=== PATIENT | female | born 1975 | race Caucasian/White ===

== ENCOUNTER 2021-04-22 16:42 | Emergency (ER) | payer OTHER, SELFPAY ==
[2021-04-22 16:56] VITALS: BP 135/96; PULSE 87; RESP 18; TEMP 37; O2SAT 100
--- NOTE | 2021-04-22 18:03 | ED.URI ---
HPI - URI/Sore Throat General Chief Complaint: Upper Respiratory Infection Stated Complaint: Headache,Cough,Congestion,Runny Nose Time Seen by Provider: 04/22/21 17:35 Source: patient and RN notes reviewed Mode of arrival: ambulatory Limitations: no limitations History of Present Illness HPI Narrative: Patient presents today complaint of a 1 week history of nasal congestion, cough, rhinorrhea, sore throat, ear pain. Cough is productive. States sore throat is worse in the morning 7 improves throughout the day. Patient woke up this morning with crustiness and redness in her right eye. She did get some relief with [id number]-gojuoml eyedrops. She has tried Mucinex, Sudafed, Zyrtec, Benadryl, and ibuprofen with little relief. Denies shortness of breath, fever. States symptoms improved a few days ago, but then worsened again this morning. MD elicited complaint: cough, sore throat and nasal congestion Related Data Home Medications Medication Instructions Recorded Confirmed biotin 5,000 mcg disintegrating 15,000 mcg PO DAILY tablet 08/28/19 04/22/21 tablet cetirizine 10 mg tablet 10 mg PO DAILY 08/28/19 04/22/21 levonorgestrel 20 mcg/24 hours (7 1 device I-UTERINE ONCE 01/17/20 04/22/21 yrs) 52 mg intrauterine device Allergies Allergy/AdvReac Type Severity Reaction Status Date / Time No Known Allergies Allergy Verified 04/22/21 17:05 Review of Systems Review of Systems: CONSTITUTIONAL: Denies body aches, fever, chills, or sweats. EYES: Denies visual changes, redness, or discharge. ENT: + Congestion, rhinorrhea, sore throat, bilateral ear pain CARDIOVASCULAR: Denies chest pain, palpitations, or edema. RESPIRATORY: Denies dyspnea.+ Cough GASTROINTESTINAL: Denies abdominal pain, nausea, vomiting, or diarrhea. GENITOURINARY: Denies dysuria or hematuria. SKIN: Denies rash, itching, or wounds. MUSCULOSKELETAL: Denies back pain, joint pain, or myalgia. NEUROLOGIC: Denies headache, numbness, tingling, or weakness. PSYCH: Denies depression or anxiety. PMFSH Past Medical History Medical History Anemia Encounter for colonoscopy following colon polyp removal Encounter for intrauterine device placement Fatigue Muscle cramps Normal vaginal delivery Obesity Ovarian cyst Patella fracture Vitamin D deficiency Surgical History Surgical History History of removal of ovarian cyst History of right knee surgery [place] teeth removed Family History Family History Father Hypertension Sibling Patient's sister is in good health Patient's brother is in good health Mother Family history of anemia Social History Social History Smoking status: Never smoker Second hand tobacco smoke exposure: No Alcohol intake: current Alcohol use details: 2-3 per month. Substance use: never Substance use type: does not use Gender identity (if verbalized by the patient): Female Spiritual care concerns: No Agree to blood products: Yes Comments At time of signature, I have reviewed and agree with nursing past medical, surgical, social and family history unless otherwise noted. Please see nursing chart for further information. There is no relevant family history pertinent to the presenting complaint Exam Narrative: GENERAL: Well-appearing, well-nourished, and in no acute distress. HEAD: Normocephalic, atraumatic. EYES: EOMI. PERRL. Left eye normal. Right eye: mildly injected conjunctiva. No active drainage. Lashes normal bilaterally ENT: Mucous membranes pink and moist. Nares congested. Turbinates erythematous with purulent discharge. TMs normal bilaterally. Throat normal. Uvula midline. NECK: Normal AROM. Supple. No lymphadenopathy. CHEST: No respiratory distress. Son
== END 2021-04-22 18:14 | disposition home or self-care (01) ==
PROVIDERS: Emergency Provider Nurse Practitioner
DX: J01.90 Acute sinusitis, unspecified (principal); H10.31 Unspecified acute conjunctivitis, right eye; D64.9 Anemia, unspecified; E66.9 Obesity, unspecified; Z68.36 Body mass index [BMI] 36.0-36.9, adult
CPT/HCPCS: 87081; 87880; 99213; G0463

== ENCOUNTER → 2021-07-17 03:16 | Outpatient (CLI) | payer OTHER, SELFPAY ==
[2021-07-18 22:39] LABS: SARS-CoV-2 RNA PCR Positive
== END ==
PROVIDERS: Visit Provider Internal Medicine Gastroenterology
DX: U07.1 COVID-19 (principal)
CPT/HCPCS: C9803; U0003; U0005

== ENCOUNTER 2022-06-29 13:13 | Outpatient (CLI) | payer OTHER, SELFPAY ==
[2022-06-29 15:07] LABS: Influenza A QL RT-PCR Negative (Negative); Influenza B QL RT-PCR Negative (Negative); RSV RNA, RT-PCR Negative (Negative); SARS-CoV-2 RNA PCR Positive
== END 2022-06-29 13:14 | disposition home or self-care (01) ==
LOC: ANHLAB 13:15
PROVIDERS: Visit Provider Physician Assistant
DX: U07.1 COVID-19 (principal)
CPT/HCPCS: 87637

== ENCOUNTER 2022-12-02 15:03 | Outpatient (CLI) | payer OTHER, SELFPAY ==
--- NOTE | ~2022-12-02 | MM_ITS ---
EXAMINATION: MM screening [facility] BI w falguni HISTORY: Screening mammogram TECHNIQUE: Craniocaudal and mediolateral oblique 3-D tomosynthesis images were obtained and synthetic 2-D images were generated. CAD analysis was submitted and interpreted. COMPARISON: 04/13/2019, 11/20/2015, 01/17/2015, 08/01/2014, 07/22/2014 BREAST PARENCHYMAL COMPOSITION: There are scattered areas of fibroglandular density. FINDINGS: No suspicious mass, calcification, or architectural distortion are identified in either [place] ast to suggest malignancy. There has been no suspicious interval change. IMPRESSION: 1. No mammographic evidence of malignancy. 2. Recommend routine screening mammography in one year. BI-RADS Category 1: Negative Reviewed, dictated and finalized at location A.
== END 2022-12-02 15:04 | disposition home or self-care (01) ==
PROVIDERS: PCP Family Medicine; Visit Provider Nurse Practitioner Obstetrics & Gynecology
DX: Z12.31 Encounter for screening mammogram for malignant neoplasm of breast (principal)
CPT/HCPCS: 77063; 77067

== ENCOUNTER 2023-01-17 01:31 | Day surgery (SDC) | payer OTHER, SELFPAY ==
[2023-01-05 13:04] VITALS: BMI 36.6
[2023-01-17 06:18] VITALS: BP 132/90; PULSE 78; RESP 18; TEMP 36.2; O2SAT 99; BMI 38.2
[2023-01-17] MEDS: LACTATED RINGERS 1,000 ML 150 ML IV CONT (06:31)
--- NOTE | 2023-01-17 07:20 | WPDANESEPPF ---
Anes - Initial Pre Proc Eval Procedure: Operation Date: 01/17/23 07:30 Proposed Procedures p Colonoscopy - Paulino Luciano MD Date/Time: 01/17/23 07:20 Surgeon: Paulino Luciano MD Pre Op Diagnosis: hx colon polyps Patient Data Age: 47 Gender: F Height: 1.65 m Weight: 104.2 kg Last Vital Signs Temp 97.2 F L 01/17/23 06:18 Pulse 78 01/17/23 06:18 Resp 18 01/17/23 06:18 BP 132/90 01/17/23 06:18 Pulse Ox 99 01/17/23 06:18 O2 Del Method Room Air 01/17/23 06:18 Allergies Allergy/AdvReac Type Severity Reaction Status Date / Time No Known Allergies Allergy Verified 01/17/23 06:17 Home Medications Medication Instructions Recorded Confirmed Type cetirizine 10 mg tablet (All Day 10 mg PO DAILY 08/28/19 01/17/23 History Allergy (cetirizine)) levonorgestrel 21 mcg/24 hours (8 1 device intrauterine ONCE 01/17/20 01/17/23 History yrs) 52 mg intrauterine device (Mirena) cholecalciferol (vitamin D3) 25 25 mcg PO DAILY 07/15/22 01/17/23 History mcg (1,000 unit) capsule mecobalamin (vitamin B12) 1,000 1,000 mcg PO DAILY 07/15/22 01/17/23 History mcg chewable tablet inulin-sorbitol 2 gram chewable 2 tablet PO DAILY 01/05/23 01/17/23 History tablet (Fiber Supplement (inulin)) omega-3s 300 on-gdm-bcm-other 1 cap PO DAILY 01/05/23 01/17/23 History [id number] oil 1,000 mg capsule ([place]-3 Fish Oil) Patient hx anesthesia problems: none Family hx anesthesia problems: none Results Review: All pre-operative results and documents have been reviewed as part of the pre-operative evaluation. [facility] Past Medical History Medical History Anemia Encounter for colonoscopy following colon polyp removal Encounter for intrauterine device placement Fatigue Gastroesophageal reflux disease Muscle cramps Normal vaginal delivery Obesity Ovarian cyst Patella fracture Vitamin D deficiency Surgical History Surgical History History of removal of ovarian cyst History of right knee surgery [place] teeth removed Family History Family History Father Hypertension Sibling Patient's sister is in good health Patient's brother is in good health Mother Family history of anemia Social History Social History Smoking status: Never smoker Second hand tobacco smoke exposure: No Alcohol intake: current Drinks per week: 1 Alcohol use details: Social Substance use: never Substance use type: does not use Lack of Transportation: No Lack of Food: Never True Current Housing: I Have Housing Concerned About Future Housing: No Difficulty Paying Gas/Electric Bills: No Difficulty Paying for Meds: No Currently Unemployed: No Education: Associate Degree Difficulty w/ Childcare or Family Care: No Living arrangements: with family Occupation/Education: occupation Gender identity (if verbalized by the patient): Female Spiritual care concerns: No Agree to blood products: Yes Anes - Eval Final PreProcedure Day of Procedure 01/17/23 07:20 Patient weight: obese Heart: regular rate and rhythm Lungs: clear to auscultation Airway: Mallampati scale class II Neurological: alert and oriented Last oral intake: >/= 8 hours ASA classification: II Emergent: no Anesthetic plan: proceed Anesthesia type and monitoring: general GIVS and standard monitoring Results Review: All pre-operative results and documents have been reviewed as part of the pre-operative evaluation. Informed Consent: The patient's anesthetic plan and its attendant risks and benefits were discussed with the patient/family/POA. Questions were solicited and answers provided to the satisfaction of the patient/family/POA.
[2023-01-17 08:08] VITALS: BP 115/72; PULSE 86; RESP 19; O2SAT 100
--- NOTE | 2023-01-17 08:10 | PM.HPGS ---
History of Present Illness History of Present Illness Consent: Risks, benefits, and alternatives have been discussed and questions answered. Patient agrees to proceed with procedure. Chief complaint: hx colon polyps Narrative: Verónica France is a 47 year old female Presents for colonoscopy. Patient's current weight appetite and bowel movements are normal. She denies abdominal pain. She has had no bleeding. Family history is significant 2 siblings have been identified as having colon polyps. Patient's previous colonoscopy revealed adenomatous colon polyps. Patient presents today for follow-up colonoscopy. Review of Systems Review of Systems: Review of systems noncontributory. [facility] Past Medical History Medical History Anemia Encounter for colonoscopy following colon polyp removal Encounter for intrauterine device placement Fatigue Gastroesophageal reflux disease Muscle cramps Normal vaginal delivery Obesity Ovarian cyst Patella fracture Vitamin D deficiency Surgical History Surgical History History of removal of ovarian cyst History of right knee surgery [place] teeth removed Family History Family History Father Hypertension Sibling Patient's sister is in good health Patient's brother is in good health Mother Family history of anemia Social History Social History Smoking status: Never smoker Second hand tobacco smoke exposure: No Alcohol intake: current Drinks per week: 1 Alcohol use details: Social Substance use: never Substance use type: does not use Lack of Transportation: No Lack of Food: Never True Current Housing: I Have Housing Concerned About Future Housing: No Difficulty Paying Gas/Electric Bills: No Difficulty Paying for Meds: No Currently Unemployed: No Education: Associate Degree Difficulty w/ Childcare or Family Care: No Living arrangements: with family Occupation/Education: occupation Gender identity (if verbalized by the patient): Female Spiritual care concerns: No Agree to blood products: Yes Meds Home Medications and Allergies Home Medications Medication Instructions Recorded Confirmed Type cetirizine 10 mg tablet (All Day 10 mg PO DAILY 08/28/19 01/17/23 History Allergy (cetirizine)) levonorgestrel 21 mcg/24 hours (8 1 device intrauterine ONCE 01/17/20 01/17/23 History yrs) 52 mg intrauterine device (Mirena) cholecalciferol (vitamin D3) 25 25 mcg PO DAILY 07/15/22 01/17/23 History mcg (1,000 unit) capsule mecobalamin (vitamin B12) 1,000 1,000 mcg PO DAILY 07/15/22 01/17/23 History mcg chewable tablet inulin-sorbitol 2 gram chewable 2 tablet PO DAILY 01/05/23 01/17/23 History tablet (Fiber Supplement (inulin)) omega-3s 300 rl-ndk-shf-other 1 cap PO DAILY 01/05/23 01/17/23 History [id number] oil 1,000 mg capsule ([place]-3 Fish Oil) Allergies Allergy/AdvReac Type Severity Reaction Status Date / Time No Known Allergies Allergy Verified 01/17/23 06:17 Vital Signs Vital Signs - 24 hr 01/17/23 06:18 Temperature 97.2 F L Pulse Rate 78 Respiratory Rate 18 Blood Pressure 132/90 Pulse Oximetry 99 Oxygen Delivery Room Air Exam Narrative: Physical exam reveals patient to be alert. Vital signs stable. HEENT exam is unremarkable. Patient is anicteric. Lungs are clear to auscultation and percussion. Heart is without murmur or extra sounds. Abdomen bowel sounds are present soft nontender with no organomegaly. Digital external rectal exam is normal. Assessment and Plan Assessment and plan (1) History of colon polyps: Code(s): Z86.010 - Personal history of colonic polyps Status: Acute Assessment and Plan: Patient h
[2023-01-17 08:18] VITALS: BP 111/77; PULSE 71; RESP 20; O2SAT 100
[2023-01-17 08:27] VITALS: BP 123/77; PULSE 70; RESP 19; O2SAT 100
== END 2023-01-17 08:43 | disposition home or self-care (01) ==
PROVIDERS: PCP Family Medicine; Visit Provider Internal Medicine Gastroenterology
PROC: 0DJD8ZZ Inspection of Lower Intestinal Tract, Via Natural or Artificial Opening Endoscopic (ICD-10-PCS; CPT 45378; principal; 2023-01-17 07:30)
DX: Z12.11 Encounter for screening for malignant neoplasm of colon (principal); D12.2 Benign neoplasm of ascending colon; D12.3 Benign neoplasm of transverse colon; K63.5 Polyp of colon; K64.8 Other hemorrhoids; K57.30 Diverticulosis of large intestine without perforation or abscess without bleeding; E55.9 Vitamin D deficiency, unspecified; E66.9 Obesity, unspecified; Z68.38 Body mass index [BMI] 38.0-38.9, adult
CPT/HCPCS: 45385; 88305; J2704; J7120

== ENCOUNTER 2023-09-16 16:40 | Emergency (ER) | payer OTHER, SELFPAY ==
[2023-09-16 16:51] VITALS: BP 127/92; PULSE 95; RESP 16; TEMP 36.7; O2SAT 100
--- NOTE | 2023-09-16 17:27 | ED.SKABFB ---
HPI - Skin/Abscess/Foreign Bdy General Chief complaint: Wound/Laceration Stated complaint: WOUND CHECK Time Seen by Provider: 09/16/23 16:56 Source: patient, RN notes reviewed and old records reviewed Mode of arrival: ambulatory Limitations: no limitations History of Present Illness HPI narrative: 47-year-old female to [facility] with complaint of nonhealing wound to her upper inner thigh. Patient endorses she was seen by her OBGYN 8 days ago and had a lesion removed at that time. Patient endorses that she was not given wound care instructions and is concerned that she has an infection. Patient endorses purulent discharge from wound and pain for past 3 days. Patient denies fever, nausea. Related Data Home Medications Medication Instructions Recorded Confirmed cetirizine 10 mg tablet (All Day 10 mg PO DAILY 08/28/19 09/16/23 Allergy (cetirizine)) levonorgestrel 21 mcg/24 hours (8 1 device intrauterine ONCE 01/17/20 09/16/23 yrs) 52 mg intrauterine device (Mirena) cholecalciferol (vitamin D3) 25 25 mcg PO DAILY 07/15/22 09/16/23 mcg (1,000 unit) capsule mecobalamin (vitamin B12) 1,000 1,000 mcg PO DAILY 07/15/22 09/16/23 mcg chewable tablet inulin-sorbitol 2 gram chewable 2 tablet PO DAILY 01/05/23 09/16/23 tablet (Fiber Supplement (inulin)) omega-3s 300 cm-ncu-qux-other 1 cap PO DAILY 01/05/23 09/16/23 [id number] oil 1,000 mg capsule ([place]-3 Fish Oil) Allergies Allergy/AdvReac Type Severity Reaction Status Date / Time No Known Allergies Allergy Verified 09/16/23 16:47 Review of Systems Review of Systems: All systems reviewed & are unremarkable except as noted in HPI and below Constitutional: Constitutional: Reports no additional constitutional complaints Eyes: Eyes: Reports no additional eye complaints ENT: Reports system reviewed and no additional complaints, except as documented Cardiovascular: Cardiovascular: Reports no additional cardiovascular complaints, Denies chest pain and Denies dyspnea Respiratory: Respiratory: Reports no additional respiratory complaints, Denies cough and Denies dyspnea Musculoskeletal: Musculoskeletal: Reports no additional musculoskeletal complaints Integumentary/Breasts: Skin/Breast: Reports wounds Neurologic: Reports system reviewed and no additional complaints, except as documented Psychiatric: Psychiatric: Reports no additional psychiatric complaints PMFSH Past Medical History Medical History Anemia Encounter for colonoscopy following colon polyp removal Encounter for intrauterine device placement Fatigue Gastroesophageal reflux disease Muscle cramps Normal vaginal delivery Obesity Ovarian cyst Patella fracture Vitamin D deficiency Surgical History Surgical History History of removal of ovarian cyst History of right knee surgery [place] teeth removed Family History Family History Father Hypertension Sibling Patient's sister is in good health Patient's brother is in good health Mother Family history of anemia Social History Social History Smoking status: Never smoker Second hand tobacco smoke exposure: No Alcohol intake: current Drinks per week: 1 Alcohol use details: Social Substance use: never Substance use type: does not use Lack of Transportation: No Lack of Food: Never True Current Housing: I Have Housing Concerned About Future Housing: No Difficulty Paying Gas/Electric Bills: No Difficulty Paying for Meds: No Currently Unemployed: No Education: Associate Degree Difficulty w/ Childcare or Family Care: No Living arrangements: with family Occupation/Education: occupation Gender identity (if verbalized by the patient): Female S
== END 2023-09-16 17:39 | disposition home or self-care (01) ==
PROVIDERS: Emergency Provider Nurse Practitioner Family; PCP Family Medicine
DX: S71.109A Unspecified open wound, unspecified thigh, initial encounter (principal); L08.9 Local infection of the skin and subcutaneous tissue, unspecified; X58.XXXA Exposure to other specified factors, initial encounter
CPT/HCPCS: 87070; 87075; 87076; 87205; 99213; G0463

== ENCOUNTER 2024-05-18 14:20 | Outpatient (CLI) | payer OTHER, SELFPAY ==
--- NOTE | ~2024-05-18 | MM_ITS ---
EXAMINATION: MM screening [facility] BI w falguni HISTORY: Screening TECHNIQUE: Craniocaudal and mediolateral oblique 3-D tomosynthesis images were obtained and synthetic 2-D images were generated. CAD analysis was submitted and interpreted. COMPARISON: Comparison to multiple prior studies sequentially, with oldest reviewed study dated 11/19.. BREAST PARENCHYMAL COMPOSITION: Not dense: There are scattered areas of fibroglandular density. FINDINGS: There is no evidence of suspicious mass, calcification, or architectural distortion to sugg est malignancy in either breast. There has been no suspicious interval change. IMPRESSION: 1. No mammographic evidence of malignancy. 2. Recommend routine screening mammography in one year. BI-RADS Category 1: Negative Reviewed, dictated and finalized at location B. [employer]
== END 2024-05-18 14:21 | disposition home or self-care (01) ==
LOC: ANHIMG 14:23
PROVIDERS: PCP Family Medicine; Visit Provider Nurse Practitioner Obstetrics & Gynecology
DX: Z12.31 Encounter for screening mammogram for malignant neoplasm of breast (principal)
CPT/HCPCS: 77063; 77067

== ENCOUNTER 2024-07-13 10:44 | Outpatient (CLI) | payer OTHER, SELFPAY ==
[2024-07-13 11:44] LABS: Alanine Aminotransferase 38 U/L (6-35); Albumin Level 4.1 g/dL (3.5-5.1); Alkaline Phosphatase 76 U/L (38-126); Anion Gap 1 mmol/L (4-12); Aspartate Amino Transferase 24 U/L (14-36); Bilirubin,Total 0.8 mg/dL (0.2-1.3); Blood Urea Nitrogen 19 mg/dL (7-17); Calcium 10.7 mg/dL (8.4-10.2); Carbon Dioxide 25 mmol/L (22-30); Chloride 109 mmol/L (98-107); Cholesterol 196 mg/dL (0-200); Estimated Glomerular Filt Rate > 60; Glucose 105 mg/dL (65-110); HDL Direct 47 mg/dL; Potassium 4.3 mmol/L (3.4-5.0); Sodium 135 mmol/L (137-145); Triglycerides 97 mg/dL (<150)
[2024-07-13 11:55] LABS: LDL Cholesterol Direct 115 mg/dL
[2024-07-13 12:34] LABS: Vitamin D 25 Hydroxy 34.6 ng/mL
== END 2024-07-13 10:45 | disposition home or self-care (01) ==
PROVIDERS: PCP Family Medicine; Visit Provider Student in an Organized Health Care Education/Training Program
DX: E55.9 Vitamin D deficiency, unspecified (principal); Z00.00 Encounter for general adult medical examination without abnormal findings
CPT/HCPCS: 36415; 80053; 80061; 82306

== ENCOUNTER 2024-07-18 07:19 | Outpatient (CLI) | payer OTHER, SELFPAY ==
[2024-07-18 10:29] LABS: Parathyroid Intact 119.6 pg/mL (14.5-75.2)
[2024-07-19 11:28] LABS: Ionized Calcium 5.8 mg/dL (4.7-5.5)
== END 2024-07-18 07:20 | disposition home or self-care (01) ==
LOC: ANHLAB 07:20
PROVIDERS: PCP Family Medicine; Visit Provider Student in an Organized Health Care Education/Training Program
DX: E83.52 Hypercalcemia (principal)
CPT/HCPCS: 36415; 82330; 83970

== ENCOUNTER 2024-10-27 08:18 | Outpatient (CLI) | payer OTHER, SELFPAY ==
--- OUTSIDE RECORDS SUMMARY | 2024-10-27 08:22 | XMS_ITS | Data Portability ---
Author Organization [facility] Address [address] [place] [address] [place] [address] Care Team Providers Care Executive Communications Manager Name Role Phone ALEXX WOODARD Primary Care Provider CH MAVIS Primary Care Provider Assessment Encounter Date Assessment Date Assessment LastModified by Organization Details LastModified Time 08/16/2023 08/16/2023 Annual gynecological exam performed. Patient will come back in a year unless there are new symptoms. [email or web address] Not available 08/16/2023 11:04:08 10/25/2024 10/25/2024 Annual gynecological exam performed. Patient will come back in a year unless there are new symptoms. [email or web address] Not available 10/25/2024 15:40:37 Plan of Treatment Reminders Order Date Submit Date Provider Last Modified By Organization Details Last Modified Time Details Appointments None recorded. Lab None recorded. Referral None recorded. Procedures None recorded. Surgeries None recorded. Imaging MAMMO, screening, digital, bilateral [address] [facility], [address], [place], [address], 16:36:16 MAMMO, screening, bilateral [facility] [address], [place], [address], 18:04:47 Medication Orders mupirocin 2 % topical ointment 2023 024 [facility] [address] [place], [address], 14:37:11 Bactrim DS 800 mg-160 mg tablet 2023 [facility] [address] [place], [address], 14:37:09 Patient TargetsNo targets recorded. Patient InstructionsNo instructions recorded. Reason for Referral None Reported. Results Created Date Observation Date Name Description Value Unit Range Abnormal Flag Note LastModifiedBy Organization Detail LastModifiedTime 08/16/19 24 08/16/2023 IMAGE GUIDE D PAP AND HPV REGAR DLESS image guided Pap, HPV regardless of Pap result SEE RESULT S BELOW CASE REPOR T: Cytol ogy Gynec ologi aylin Repor t Case: [id number] Autho ashley argueta Provi alfa: Oleg Valera Colle cted: 08/16 1354 ORAL AND MAXILLOFACIAL SURGERY Order ing Locat ion: [place] Patho logy Recei ramona: 08/17 0104 First Scree n: Carlita Brush, CT Speci men: Analilia lou Pap - Image d, Cervi x STATE MENT OF ADEQU ACY: Satis facto ry for evalu ation Trans forma tion zone compo nent prese nt FINAL DIAGN OSIS: Negat dallin for Intra epith elial Tiffanie n or Desmond de oliveira (NIL) . Heather quintanilla d by Carlita Brush, CT on at 9:51 AM ----- ----- ----- ----- ----- ----- ----- ----- ----- ----- ----- ----- ----- ----- ----- ----- ----- ---- HPV RESUL TS: HPV mRNA E6/E7 : No HPV mRNA Detec brayden NOTE: This high risk HPV mRNA assay detec ts fourt een high- risk HPV types (16, 18, 31, 33, 35, 39, 45, 51, 52, 56, 58, 59, 66, 68) witho ut diffe renti ation . COMME NT: This speci men was revie wed by a Cytot echno logis t and/o r Patho logis t (as indic ated in this repor t) after evalu ation using the Thinp rep Imagi ng Syste m. CLINI AYLIN INFOR MATIO N: Menst rual Statu s: LMP (if appli cable ): Clini aylin Histo ry/Pr eviou s Pap: Type of Neopl brandi (if appli cable ): Signi fican t Clini aylin Findi ngs: Other Histo ry: Hormo melissa (if appli cable ): PAP EDUCA RACHEL L NOTE: The Pap Test is a scree carmine test with an inher ent false negat dallin rate. Liqui d-bas ed sampl ing may decre ase, but will not elimi noemi, false negat dallin resul ts. A negat dallin resul t does not precl ude the prese nce and/o r devel opmen t of disea se, since the prese nce of abnor mal cells in the sampl e depen ds on the locat ion of the lesio n and sampl ing techn ique. Lyn nued regul ar scree carmine is the best metho d of cance r preve ntion . If repor brayden cytol ogic findi ng do not corre late with physi aylin and/o r histo rical findi ngs, furth er inves tigat ion is recom kristofer d, as clini rodo warra nted. Not Available [facility] (Lab) [address], [place], [address], 08/18/2023 10:54:47 09/08/19 24 09/08/2023 SURGI AYLIN PATHO LOGY surgical pathology SEE RESULT S BELOW CASE REPOR T: Surgi aylin Patho logy Repor t Case: [id number] Autho ashley argueta Provi alfa: Oleg Valera Colle cted: 1611 ORAL AND MAXILLOFACIAL SURGERY Order ing Locat ion: [place] Patho [place]y Recei ramona: 09/08 0145 Patho logis t: Arthur Morris MD Speci men: Thigh , Left, Left innte r thigh skin tag FINAL DIAGN OSIS: Skin, left thigh , excis ion: -Soft fibro ma. Heather kelvin hessenma quintanilla d by Arthur Morris MD on 024 at 10:15 AM ----- ----- ----- ----- ----- ----- ----- ----- ----- ----- ----- ----- ----- ----- ----- ----- ----- ---- CLINI AYLIN INFOR MATIO N: L98.9 MICRO SCOPI C DESCR IPTIO N: A micro scopi c exami natio n was perfo rmed. GROSS DESCR IPTIO N: A. Thigh , Left. The speci men is recei ramona in forma esme label ed with the patie nt's name, demog raphsuzanne cs, and skin tag . It consi sts of a yang-w marlen, verru coid skin shave measu ring 0.6 x 0.5 x 0.4 cm. The kerry n is inked blue. The speci men is bisec brayden and submi tted entir lara in casse tte A1. Gross ed by Radha Grewal Not Available [facility] (Lab) [address] [facility], [place], [address], 09/14/2023 11:20:07 05/18/20 24 05/18/2024 analilia NOEL bilat eral No observ ation record ed. [address], [place], [address], 10/17/2024 14:04:21 Result Notes None recorded. 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 17:49:12 Problem Notes None recorded. Procedures Surgical History Date Name Laterality Status Provider Name and Address Organization Details Recorded Time 05/18/20 24 Date of Last Mammogram completed Darcy Pang [facility] 10/25/2024 15:32:21 09/08/19 24 Skin Tag Removal completed Kathleen Barr [facility] [address], [place], [address], [facility] 09/08/2023 11:34:46 08/16/19 24 Date of Last Pap Smear completed Peace Mcgowan [facility] 09/08/2023 10:58:09 07/12/19 23 colonoscopy completed Kathleen Barr [facility] [address], [place], [address], [facility] 08/16/2023 11:21:48 07/11/19 23 Date of Last Colonoscopy completed Peace Mcgowan [facility] 08/16/2023 11:11:31 01/01/20 20 IUD Insertion completed Isabelle Massey [facility] 01/01/2020 17:13:28 03/20/20 19 completed Dana Watters [facility] 02/27/2021 14:20:16 cryosurgery completed Kathleen Barr [facility] [address], [place], [address], [facility] 07/27/2022 15:43:03 Imaging Results Imaging Date Name Status LastModified by Organiz ation Details LastModified Time 05/18/2024 MAMMO, screening, bilateral completed [facility] [address], [place], [address], 10/17/2024 14:04:21 Procedure Notes None recorded. Medical Equipment None Reported. Allergies No known drug allergies Medications Name Sig Start Date Stop Date Status Note LastModified by Organization Details LastModified Time vitamin d3 03533 unit caps active Not Available Not Available Not Available Mirena 21 mcg/24 hr (up to 8 years) 52 mg intrauterin e device Take 1 device by intrauter ine route. 2020 active Not Available Not Available Not Avai lable prednisone 10 mg tablet TAKE 5 TABLETS BY MOUTH ONCE DAILY FOR 2 DAYS, THEN 4 ONCE DAILY FOR 2 DAYS, THEN 3 ONCE DAILY FOR 2 DAYS, THEN 2 ONCE DAILY FOR 2 DAYS, THEN 1 ONCE DAILY FOR 2 DAYS FOR 10 DAYS TOTAL. 07/27 completed Not Available Not Available Not Available cetirizine 10 mg tablet take 1 tablet by oral route every day active Not Available Not Available No t Available valacyclovi r 500 mg tablet TAKE 2 TABLETS BY MOUTH EVERY 12 HOURS NEEDED FOR COLD SORES active Not Available Not Available No t Available sulfamethox azole 800 mg-trimetho prim 160 mg tablet Take 1 tablet every 12 hours by oral route with meal(s) for 3 days. 10/24 completed Not Available Not Available Not Available mupirocin 2 % topical ointment APPLY A SMALL AMOUNT TO THE AFFECTED AREA BY TOPICAL ROUTE 3 TIMES PER DAY x 7 days 10/24 completed Not Available Not Available Not Available methylpredn isolone 4 mg tablets in a dose pack TAKE BY MOUTH DIRECTED ON INSIDE OF PACKAGE 08/16 completed Not Available Not Available Not Available amoxicillin 875 mg-potassiu m clavulanate 125 mg tablet TAKE 1 TABLET BY MOUTH EVERY 12 HOURS FOR 7 DAYS 07/27 completed Not Available Not Available Not Available NuvaRing 0.12 mg-0.015 mg/24 hr vaginal insert 1 vaginal ring by vaginal route every month leave in place for 3 weeks, remove for 1 week 03/05 completed Not Available Not Available Not Available vitamin B complex active Not Available Not Available Not Available Metamucil 08/16 completed Not Available Not Available Not Available Leander 3 active Not Available Not Avail able Not Available sodium,pota ssium,mag sulfates 17.5 gram-3.13 gram-1.6 gram oral soln TAKE DIRECTED 08/16 completed Not Available Not Available Not Available Paxlovid 300 mg (150 mg x 2)-100 mg tablets in a dose pack TAKE 3 TABLETS TOGETHER (TWO 150 MG NIRMATREL VIR TABLETS AND ONE 100 MG RITONAVIR TABLET) BY MOUTH TWICE DAILY FOR 5 DAYS. 07/27 completed Not Available Not Available Not Available Vitals Date Recorded Body height Body mass index (BMI) Body weight Systolic blood pressure Diastolic blood pressure Provider Name and Address Organization Details Last Updated DateTime 08/16/2023 165.1 cm 38.9 kg/m2 824384.6 1 g 123 mm[Hg] 76 mm[Hg] [facility] 4 11:08:20 Date Recorded Body height Body mass index (BMI) Body weight Systolic blood pressure Diastolic blood pressure Provider Name and Address Organization Details Last Updated DateTime 09/08/2023 165.1 cm 38.8 kg/m2 720631.0 2 g 118 mm[Hg] 77 mm[Hg] [facility] 4 10:58:59 Date Recorded Body height Body mass index (BMI) Body weight Systolic blood pressure Diastolic blood pressure Provider Name and Address Organization Details Last Updated DateTime 09/22/2023 165.1 cm 39.1 kg/m2 364704.2 1 g 108 mm[Hg] 70 mm[Hg] [facility] 4 14:16:36 Date Recorded Body height Body mass index (BMI) Body weight Systolic blood pressure Diastolic blood pressure Provider Name and Address Organization Details Last Updated DateTime 09/29/2023 165.1 cm 38.4 kg/m2 664921.4 g 120 mm[Hg] 80 mm[Hg] [facility] 4 16:04:21 Date Recorded Body height Body mass index (BMI) Body weight Systolic blood pressure Diastolic blood pressure Provider Name and Address Organization Details Last Updated DateTime 10/25/2024 165.1 cm 38.3 kg/m2 474612.6 8 g 142 mm[Hg] 84 mm[Hg] Darcy Pang [facility] 15:40:57 Social History Question Answer Notes LastModified by Organizat ion Details LastModified Time Tobacco Smoking Status Never Smoker Keturah Donovan em, [facility] 07/27/2022 15:38:16 Do You Have An Advance Directive? No Information not available 02/27/2021 What Is Your Level Of Alcohol Consumption? Occasional Information not available 02/27/2021 How Many Years Have You Consumed Alcohol? 30 [email or web address] Information not available 10/25/2024 Are You Blind Or Do You Have Difficulty Seeing? No Information not available 02/27/2021 What Is Your Level Of Caffeine Consumption? Occasional Information not available 02/27/2021 How Much Tobacco Do You Chew? None Information not available 02/27/2021 In The 14 Days Before Symptom Onset, Have You Had Close Contact With A Laboratory-confir med COVID-19 While That Case Was Ill? No Information not available 02/27/2021 In The 14 Days Before Symptom Onset, Have You Had Close Contact With A Person Who Is Under Investigation For COVID-19 While That Person Was Ill? No Information not available 02/27/2021 Have You Been To An Area Known To Be High Risk For COVID-19? No Information not available 02/27/2021 Are You Deaf Or Do You Have Serious Difficulty Hearing? No Information not available 02/27/2021 What Type Of Diet Are You Following? REGULAR Information not available 02/27/2021 What Is The Highest Grade Or Level Of School You Have Completed Or The Highest Degree You Have Received? 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 Yes Information not available 02/27/2021 Do You Use Protection During Sex? No Information not available 02/27/2021 Do You Use Your Seat Belt Or Car Seat Routinely? Yes Information not available 02/27/2021 Do You Have Smoke And Carbon Monoxide Detectors In Your Home? Yes Information not available 02/27/2021 How Much Tobacco Do You Smoke? No Information not available 02/27/2021 Do You Feel Stressed (tense, Restless, Nervous, Or Anxious, Or Unable To Sleep At Night)? [id number] Information not available 02/27/2021 Do You Use Any Illicit Or Recreational Drugs? No Information not available 02/27/2021 Do You Use Sunscreen Routinely? Yes Information not available 02/27/2021 Have You Used IV Drugs? No Information not available 02/27/2021 Sex: Unknown Functional Status Question Answer Note LastModified by Organizat ion Details LastModified Time Do you have difficulty walking or climbing stairs? No Information not available 07/27/2022 Are you able to walk? YESWOREST Information not available 02/27/2021 Are you able to care for yourself? Yes Information not available 07/27/2022 Do you have difficulty dressing or bathing? No Information not available 07/27/2022 What is your exercise level? Moderate [email or web address] Information not available 10/25/2024 Mental Status None recorded. Family History Relationship Description Onset Age of this Age Resolved Age Notes LastModified by Organization Details LastModified Time Father Hypertensive disorder Not available 2020 14:21:27 Father Hyperlipidem ia [email or web address] Not available 10/09 15:06:12 Maternal Grandmother Diabetes mellitus Not available 2020 14:21:44 Mother Anemia Not available 02/27/2021 14:21:54 Medical History Condition Response Cancer Y Anemia Y Gynecological History Statement/Question Response Date of Last Mammogram 05/18/2024 Flow Light Date of LMP 10/21/2024 N Was last menstrual period normal Y STIs/STDs Y 03/20/2019 Date of Last Colonoscopy 07/11/2022 IUD Desired Control Method IUD Abnormal Pap N On BCP's at Conception? N HPV Vaccine N Current Control Method IUD Age at First Child 19 Frequency of Cycle (Q days) Sexually Active? Y Menses Monthly N Age of first menstrual cycle 14 Date of Last Pap Smear 08/16/2023 Sexual Problems? N LMP Approximate N Obstetrics History GPAL:G 3 P 1 0 2 1 Type Value Full Term 1 Induced 2 Living 1 Total 3 Past Encounters Encounter ID Performer Location Encounter Start Date Encounter Closed Date Diagnosis/Indication Diagnosis SNOMED-CT Code Diagnosis ICD10 Code Diagnosis Note [id number] Kathleen Barr [facility] [address] [address] 12/25/2019 13:16:56 12/25/2019 15:09:33 Contraception care management 593137894 Z30.9 Discussed all control options and pt would like mirena IUD. I have discussed in detail all risks and benefits including risk of infection and perforatio n. She understand s she will need to contact office with next menses or may abstain, complete serum HCG day before placement, if neg can have IUD placed next day. Aware of need to verify with insurance device coverage. Literature given. All questions answered to patient satisfacti on. She is considerin g Mirena IUD but would like to check if insurance covers EluRyng generic for nuvaring b/c she has really loved this method. She will contact her insurance to see what is covered & let us know. She has started a menses so if wanting IUD let us know & we can work her into the schedule for placement. WWE/Pap not due until 03/2020. Time spent in visit is a total of 17 mins with at least 50% of visit consisting of counseling and review of plan of care. [id number] Isabelle Massey [place] [address] [address] 01/01/2020 14:10:35 01/02/2020 10:54:41 Uses IUD (intrauterine device) contraception 125657476 Z97.5 [id number] [facility] [address],[place] [address] 01/28/2020 16:06:22 03/10/2020 12:00:23 [id number] Isabelle Lyrosalio [place] [address],[place] [address] 02/20/2020 15:43:09 02/20/2020 16:20:36 IUD check 059777177 Z30.431 Strings visualized . Explained it is not uncommon to have irregular spotting for up to 6 months. The amount described is very light. If at the 3 month yves she is still exp the spotting we could try a nuvaring or 1 pack of pills to see if we can get the spotting to stop. Pt will call if she decides to try this. [id number] Mariah Pradhan [place] [address],[place] [address] 02/19/2021 09:22:25 02/19/2021 10:13:42 Abnormal uterine bleeding [id number] 9100 N93.9 R10.2 [id number] Brody Tariq MD [place] [address],[place] [address] 02/27/2021 13:37:37 02/27/2021 15:08:34 Abnormal uterine bleeding 5208796919 9100 N93.9 R10.2 Pain in pelvis 38851326 R10.2 Contracept ion care management 434146204 Z30.9 This patient is a 45-year-ol d female presents for follow-up on abnormal uterine bleeding and cramping. Patient has an IUD and she has concerns about the IUD. She had a recent ultrasound . We reviewed the ultrasound together. I shared images with her. We spent over 25 minutes face-to-fa ce discussing various aspects of the situation. Talked about potential treatments . We talked about discontinu ation of the IUD. We talked about adjunct short-term treatments to stop bleeding. Talked about risk and benefits of all her medical options. Ultimately we agreed to observe her situation. We also agreed and estrogen to help her bleeding. [id number] Isabelle Massey [place] [address],[place] [address] 03/09/2021 14:41:22 03/10/2021 22:51:20 Gynecologic examination 43918585 Z01.419 Suggested Calcium with Vitamin D 1200-1500m g daily. Patient advised to get an annual flu shot in the fall and she could obtain at [facility] or [facility] care clinic. Also to obtain TDap vaccinatio n if you have not had one in the last 10 years. Recommend yearly mammograms . Encouraged monthly self breast exams. Encourage safe sexual practices, to use condoms and limit partners if not already in a monogamous relationsh ip. Engage in daily exercise of low impact aerobic exercise 45-60 minutes 4-5 times weekly. Avoid tobacco and illicit drugs as well as using moderation with alcohol intake less than 1-2 8 oz beverages daily. This lifestyle behavior pattern will lead to less health conditions and longer life span. If BMI greater than 25 weight watchers or dietary consult advised. All questions have been answered. Patient appears to understand informatio n, but if you have any questions please call or respond to this email. [id number] Kathleen Barr , [facility] [address] [address] 07/27/2022 15:28:44 07/27/2022 15:58:47 Gynecologic examination 48371034 Z01.419 Suggested Calcium with Vitamin D 1200-1500m g daily. Patient advised to get an annual flu shot in the fall and she could obtain at [facility] or [facility]. Also to obtain TDap vaccinatio n if you have not had one in the last 10 years. Recommend yearly mammograms . Encouraged monthly self breast exams. Encourage safe sexual practices, to use condoms and limit partners if not already in a monogamous relationsh ip. Engage in daily exercise of low impact aerobic exercise 45-60 minutes 4-5 times weekly. Avoid tobacco and illicit drugs as well as using moderation with alcohol intake less than 1-2 8 oz beverages daily. This lifestyle behavior pattern will lead to less health conditions and longer life span. If BMI greater than 25 weight watchers or dietary consult advised. All questions have been answered. Patient appears to understand informatio n, but if you have any questions please call or respond to this email.Pap/ hpv sentSTD Screen declinedGe netic Screen discussedC olon Screen PCPDexa Screen PCPRoutine Labs PCPMammo Ordered Screening mammography 24 316899 Z12.31 [id number] Kathleen Barr [facility] [address],[place] [address] 08/16/2023 10:59:33 08/16/2023 11:50:19 Gynecologic examination 36532251 Z01.419 Z11.51 Suggested Calcium with Vitamin D 1200-1500m g daily. Patient advised to get an annual flu shot in the fall and she could obtain at [facility] or [facility]. Also to obtain TDap vaccinatio n if you have not had one in the last 10 years. Recommend yearly mammograms . Encouraged monthly self breast exams. Encourage safe sexual practices, to use condoms and limit partners if not already in a monogamous relationsh ip. Engage in daily exercise of low impact aerobic exercise 45-60 minutes 4-5 times weekly. Avoid tobacco and illicit drugs as well as using moderation with alcohol intake less than 1-2 8 oz beverages daily. This lifestyle behavior pattern will lead to less health conditions and longer life span. If BMI greater than 25 weight watchers or dietary consult advised. All questions have been answered. Patient appears to understand informatio n, but if you have any questions please call or respond to this email.Pap/ hpv sentSTD Screen declinedGe netic Screen discussedC olon Screen PCPDexa Screen PCPRoutine Labs PCPMammo Ordered A Mirena IUD prevents for up to 8 years, and also helps with heavy periods for up to 5 years in women who choose an IUD for control. Screening mammography 24 863618 Z12.31 [id number] Kathleen Barr [facility] [address],[facility] [place] [address] 09/08/2023 10:51:58 09/08/2023 11:36:52 Skin tag 130951463 L91.8 D17.20 I&D/Remova l of Skin tag that had a small lipoma underneath it left inner thigh.See procedure notesPost- procedure instructio ns given with understand ing verbalized . [id number] Kathleen Barr [facility] [address] [address] 09/22/2023 13:53:32 09/22/2023 14:45:09 Infection of skin and/or subcutaneous tissue 71083362 L08.9 Today her would from removal of skin tag/small fatty lipoma directly underneath appears to be healing well. Very well demarcated and neg erythema, drainage is pink to clear serous drainage. We agreed to extend her bactrim to 10 days vs 7 days; and add abx ointment daily x 7 days; leave open to air so can heal better/fas ter. Counseled on medication R/B's, Most common side effects, & use. All questions were answered to patient satisfacti on. Patient is to contact office or go to nearest ED/Urgent care if fever >/= 100.1, pain, excessive bleeding, unusual drainage or swelling in area of concern; or experienci ng worsening sx's or new onset of concerning sx's. Understand ing verbalized . All questions answered to patient satisfacti on. RTO x 1wk or sooner if needed Time spent in visit is a total of 21 mins with at least 50% of visit consisting of counseling and review of plan of care. [id number] [facility] [address],[facility] [place] [address] 09/29/2023 15:54:15 09/29/2023 16:29:56 Postoperative care 530034459 Z48.89 Today Olimpia is following up to a previously infected skin tag/lipoma removal from 2wks ago.She has finished her abx/still using abx ointment; and area is healing appropriat lara now.She is happy with her progress.Merissa mendoza agreed to continue to finish abx ointment and leave open to air, wear loose clothing to avoid friction with fabric which is what caused an issue post-proce dure. She is instructed on urgent care/ED precaution s and return if any issues. Time spent in visit is a total of 20 mins with at least 50% of visit consisting of counseling and review of plan of care. [id number] SERGE MARIE NP [place] [address],[place] [address] 10/25/2024 15:05:52 10/25/2024 16:36:16 Gynecologic examination [id number] Z01.419 Annual gynecologi aylin exam performed. Patient will come back in a year unless there are new symptoms. Suggest Calcium with Vitamin D if not eating in diet. Patient advised to get annual flu shot. Recommend yearly physicals and perform monthly breast exams. Genetic testing is available for patients with family history of cancer. Engage in safe sexual practices, use condoms. Encouraged to have daily exercise. Avoid tobacco and illicit drugs, moderation of alcohol. If BMI greater than 25 dietary consult advised. If you have any questions please call or email. mammogram- order given, pt to schedule colon cancer screening - UTD PCP DEXA scan- n/a Pap smear- UTD (2023), will repeat in 3-5 years per ASCCP guidelines laboratory evaluation - PCP STI testing - declined A Mirena IUD prevents for up to 8 years, and also helps with heavy periods for up to 5 years in women who choose an IUD for control. Screening mammography [id number] Z12.31 Health Concerns Section Related Observation LastModified by Organization Detai ls LastModified Time None Recorded Concern Status LastModified by Organization Details LastModified Time None Recorded Advance Directives Directive N: Payers Encounter Date Sequence Insurance Name Policy Number Policy Stroud Covered Member ID Stroud Member ID Guarantor Name 08/16/2023 1 [facility] [id number] Verónica [place] [id number] Verónica [place] 09/08/2023 1 R [id number] Verónica [place] [id number] Verónica [place] 09/22/2023 1 R [id number] Verónica [place] [id number] Verónica [place] 09/29/2023 1 [facility] [id number] Verónica [place] [id number] Verónica [place] 10/25/2024 1 [facility] [id number] Verónica [place] [id number] Verónica [place] Notes Date Note Type Note Provider Name and Address Organization Details Recorded Time 08/16/2023 text/html Annual GYNReport ed bypatient.Menstrua l cycle:Normal menses (Light menses on mirena IUD) Urinary symptoms:No hematuria; No incontinence Vulva:No genital lesion Vagina:Normal vaginal discharge Breast:No breast pain; No breast lump; No nipple discharge Current Contraception:Sati sfied with current contraception; Intrauterine device (iud) Sexual complaints:No sexual complaints; No pain during intercourse; Normal libido Menopausal Symptoms:No menopausal symptoms; Normal vaginal lubrication Psychological symptoms:No depression; No anxiety; No PMDD Preventive measures:Encourage self breast examination; Encourage regular exercise; Encourage no tobacco use; Encourage regular mammograms starting age 40; Followed with yearly pap smears; Needs to schedule mammogram; Up to date on colonoscopy screening Kathleen Barr [facility] [address], [place], [address], [facility] 08/16/2023 11:43:04 09/08/2023 text/html Here today for skin tag removal. Kathleen Barr [facility] [address], [place], [address], [facility] 09/08/2023 11:35:29 09/22/2023 text/html Here today for post-procedure/pos t-urgent care follow up. Kathleen Barr [facility] [address], [place], [address], [facility] 09/22/2023 14:42:18 09/29/2023 text/html Here today for incision check of recently excised skin tag/superficial lipoma directly underneath the skin tag. Kathleen Barr [facility] [address], [place], [address], [facility] 09/29/2023 16:22:37 10/25/2024 text/html Annual GYNReport ed bypatient.History: no gynecologic complaints Menstrual cycle:Normal menses Urinary symptoms:No hematuria; No incontinence Vulva:No genital lesion Vagina:Normal vaginal discharge Breast:No breast pain; No breast lump; No nipple discharge Current Contraception:Sati sfied with current contraception; Intrauterine device (iud) Sexual complaints:No sexual complaints; No pain during intercourse; Normal libido Menopausal Symptoms:No menopausal symptoms; Normal vaginal lubrication Psychological symptoms:No depression; No anxiety; No PMDD Preventive measures:Encourage self breast examination; Encourage regular exercise; Encourage no tobacco use; Encourage regular mammograms starting age 40 Patient presents for annual well woman exam. Patient denies concerns today. SERGE MARIE, [facility] [address], [place], [address], [place] [facility] 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 Status 02/28/20 21 1 CLOSED Fetus Data First Name Last Name Admitted to NICU Weight (g) Sex Living Outcome Pediatric Complications Fetus ID Race Codes Race Delivery Type 3883.65 [id number] F Full Term [id number] Vaginal Delivery Boubacar Calculation Initial Boubacar Date Initial Exam Date Initial Exam Provider Initial Ultrasound Date Last Menstrual Period Date Ultra Sound Weeks Gestation 0 Eighteen To Twenty Week Boubacar Update Ultra Sound Date Fundal Height At Umbil Quickening Date Ultra Sound Latest Weeks Gestation Final Boubacar Confirmed By Final Boubacar Confirmed Date Final Boubacar Date Ultra Sound Latest Days Gestation 0 0 Menstrual History Last Menstrual Date Menses Monthly On Bcp Conception Prior Menses Frequency Hcg Plus Date Menarche Onset Age Delivery Information Delivery Date Delivery Type Labor Anesthesia Weeks Gestation Incision Type Labor Labor Length Hrs Delivered By Post Complications Tubal Sterilization Discharge Date Comments 5 40 Brittne y Discharge Information Feeding Method Contraceptive Method Maternal HG B and HCT Levels
--- OUTSIDE RECORDS SUMMARY | 2024-10-27 08:22 | XMS_ITS | Clinical Summary ---
Author Organization [facility] [employer] Address [address] 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 This disclosure is being madepursuant to the Care Everywhere program and may not contain all information available regarding this patient. Last updated 18.[employer] Allergies No known active allergies Medications * Be aware that medications may not be up to date on this document. Alwaysverify current medications with the patient. Etonogestrel-Ethin yl Estradiol (NUVARING VA) Active Cetirizine HCl (ZYRTEC ALLERGY PO) Active Family History Medical History Relation Name Comments Hypertension Father Relation Name Status Comments Father Social History Tobacco Use Types Packs/Day Years Used Date Smoking Tobacco: Never Smokeless Tobacco: Never Comments No Sex and Gender Information Value Date Recorded Sex Assigned at Not on file Legal Sex Female 10:32 AM CDT Gender Identity Not on file Sexual Orientation Not on file Last Filed Vital Signs Vital Sign Reading Time Taken Comments Blood Pressure 126/82 01/01/2019 10:46 AM CDT Pulse 83 01/01/2019 10:46 AM CDT Temperature 36.9 C (98.4 F) 01/01/2019 10:46 AM CDT Respiratory Rate 16 01/01/2019 10:46 AM CDT Oxygen Saturation 97% 01/01/2019 10:46 AM CDT Inhaled Oxygen Concentration - - Weight 95.3 kg (210 lb) 01/01/2019 10:46 AM CDT Height 165.1 cm (5' 5 ) 01/01/2019 10:46 AM CDT Body Mass Index 34.95 01/01/2019 10:46 AM CDT Plan of Treatment Health Maintenance Due Date Last Done Comments COLOGUARD (AGES 45-75) - COL ON CA SCREENING 1974 COLON MONITORING 1974 COLONOSCOPY - COLON CA SCREENING 1974 CT COLONOGRAPHY - COLON CA SCREENING 1974 Colorectal Cancer Screening 1974 FIT - COLON CA SCREENING 1974 FLEX SIG - COLON CA SCREENING 1974 LIPID TESTING 1974 MAMMOGRAM 1974 PAP SMEAR 1974 HIV SCREENING 1989 HEPATITIS C SCREENING 10/25/1992 DTAP/TDAP/TD VACCINES (1 - Tdap) 1993 HEPATITIS B VACCINE (1 of 3 - 19+ 3-dose series) 1993 SCREENING FOR DIABETES 01/01/2019 COVID-19 VACCINE (1 - 2023-2 5 season) 2024 DEPRESSION SCREENING 07/11/2024 ZOSTER VACCINE (1 of 2) 2024 INFLUENZA VACCINE (Season Ended) 2025 HIB VACCINE Aged Out No longer eligi ble based on patient's age to complete this topic HPV VACCINE Aged Out No longer eligi ble based on patient's age to complete this topic MENINGOCOCCAL (Group B) VACC INE SHARED DECISION-MAKING Aged Out No longer eligibl e based on patient's age to complete this topic MENINGOCOCCAL GROUPS A/C/Y/W VACCINE Aged Out No longer eligible b ased on patient's age to complete this topic PNEUMOCOCCAL VACCINE Aged Out No long er eligible based on patient's age to complete this topic Insurance [facility]
[2024-10-27 09:08] LABS: Anion Gap 5 mmol/L (4-12); Blood Urea Nitrogen 16 mg/dL (7-18); Calcium 10.4 mg/dL (8.5-10.1); Carbon Dioxide 29 mmol/L (21-32); Chloride 108 mmol/L (98-108); Estimated Glomerular Filt Rate > 60; Free T4 Free Thyroxine 1.12 ng/dL (0.76-1.46); Glucose 108 mg/dL (70-99); Osmolality Calculated 296 mOsm/kg (285-295); Potassium 4.3 mmol/L (3.5-5.1); Sodium 142 mmol/L (136-145); Thyroid Stimulating Hormone 1.86 uIU/mL (0.36-3.74)
== END 2024-10-27 08:19 | disposition home or self-care (01) ==
LOC: CHSLAB 08:20
PROVIDERS: PCP Family Medicine; Visit Provider Student in an Organized Health Care Education/Training Program
DX: E83.52 Hypercalcemia (principal); R79.89 Other specified abnormal findings of blood chemistry; R53.83 Other fatigue
CPT/HCPCS: 36415; 80048; 84439; 84443